=== PATIENT | male | born 1990 | race Caucasian/White ===

== ENCOUNTER 2016-11-18 13:28 | Emergency (ER) | payer MEDICAID, OTHER ==
--- NOTE | 2016-11-18 13:59 | ED ---
HPI Chest Pain - HPI Summary HPI Summary: 26 YR OLD male with the complaint of chest pain, palpitation, dizziness. The patient states he has been getting these symptoms the past week. He was up doing [employer] until about 4 or 5 am today. He states he has been to [facility] a couple times this past week. He states he doesn't know if his symptoms are all in his head or not. - History of Current Complaint Chief Complaint: UCChestPain Time Seen by Provider: 11/18/16 13:40 - Allergy/Home Medications Allergies/Adverse Reactions: Allergies Allergy/AdvReac Type Severity Reaction Status Date / Time No Known Allergies Allergy Verified 11/18/16 13:37 PMH/Surg Hx/FS Hx/Imm Hx Previously Healthy: Yes Respiratory History: Reports: Hx Asthma Infectious Disease History: No Infectious Disease History: Denies: Traveled Outside the in Last 30 Days - Social History Alcohol Use: Occasionally Alcohol Amount: few times a month Substance Use Type: Reports: Marijuana Substance Use Comment - Amount & Last Used: meth use 2 times weekly; also uses suboxone IV q2-3 days Smoking Status (MU): Heavy Every Day Tobacco Smoker Type: Cigarettes Amount Used/How Often: 1/2 - 3/4 ppd Length of Time of Smoking/Using Tobacco: 6 years Review of Systems Constitutional: Negative Positive: Palpitations, Chest Pain All Other Systems Reviewed And Are Negative: Yes Physical Exam Triage Information Reviewed: Yes Vital Signs On Initial Exam: Initial Vitals Temp Pulse Resp BP Pulse Ox 99.4 F 60 16 137/78 100 11/18/16 13:38 11/18/16 13:38 11/18/16 13:38 11/18/16 13:38 11/18/16 13:38 Vital Signs Reviewed: Yes Appearance: Positive: Well-Appearing, No Pain Distress, Well-Nourished Head/Face: Positive: Normal Head/Face Inspection Eyes: Positive: Normal, EOMI ENT: Positive: Pharynx normal Respiratory/Lung Sounds: Positive: Clear to Auscultation, Breath Sounds Present Cardiovascular: Positive: Normal, RRR Abdomen Description: Positive: Nontender Musculoskeletal: Positive: Normal, Strength/ROM Intact Neurological: Positive: Normal, Sensory/Motor Intact, Alert, Oriented to Person Place, Time, CN Intact II-III Psychiatric: Positive: Anxious Diagnostics - Vital Signs Vital Signs Temp Pulse Resp BP Pulse Ox 11/18/16 13:38 99.4 F 60 16 137/78 100 - Laboratory Lab Statement: Any lab studies that have been ordered have been reviewed, and results considered in the medical decision making process. - EKG 11/18/2016 Cardiac Rate: NL EKG Rhythm: Sinus Rhythm ST Segment: Normal Ectopy: None Chest Pain Course/Dx - Course Course Of Treatment: patient with CP. Discussed with Summer , DR Nogueira and the patient will be seen there for further eval, and going by ambulance. - Diagnoses Provider Diagnoses: Chest pain, Palpitations Discharge - Discharge Plan Condition: Good Disposition: TRANS HIGHER LVL OF CARE FAC
[2016-11-18 14:07] VITALS: BP 142/78
[2016-11-19] MEDS ORDERED: Aspirin Low Dose CHEW TAB* 81 MG PO ONE (13:58)
== END 2016-11-18 14:14 | disposition short-term general hospital (02) ==
LOC: UCCORT 13:28
DX: R07.89 Other chest pain (principal); R00.2 Palpitations; J45.909 Unspecified asthma, uncomplicated; F11.90 Opioid use, unspecified, uncomplicated; F17.210 Nicotine dependence, cigarettes, uncomplicated
CPT/HCPCS: 93005; 99213; A9270-GY; G0463

== ENCOUNTER 2017-04-25 17:56 | Emergency (ER) | payer OTHER ==
[2017-04-25 18:15] VITALS: BP 98/52
--- NOTE | 2017-04-25 18:23 | UC ---
Throat Pain/Nasal Turner HPI - HPI Summary HPI Summary: 27 YEAR OLD MALE PRESENTS WITH COMPLAINS OF FEVER, BODY ACHES, SORE THROAT AND HEADACHES. - History of Current Complaint Chief Complaint: UCGeneralIllness Stated Complaint: ACHES, ST Time Seen by Provider: 04/25/17 18:23 Hx Obtained From: Patient Onset/Duration: Sudden Onset Severity: Moderate - Allergies/Home Medications Allergies/Adverse Reactions: Allergies Allergy/AdvReac Type Severity Reaction Status Date / Time No Known Allergies Allergy Verified 04/25/17 18:15 PMH/Surg Hx/FS Hx/Imm Hx Previously Healthy: Yes - Surgical History Surgical History: None - Social History Alcohol Use: Occasionally Alcohol Amount: few times a month Substance Use Type: Marijuana Substance Use Comment - Amount & Last Used: meth use 2 times weekly; also uses suboxone IV q2-3 days Smoking Status (MU): Heavy Every Day Tobacco Smoker Type: Cigarettes Amount Used/How Often: 1/2 - 3/4 ppd Length of Time of Smoking/Using Tobacco: 6 years Household Exposure Type: Cigarettes Review of Systems Constitutional: Negative Skin: Negative Eyes: Negative ENT: Nasal Discharge, Sinus Congestion, Sinus Pain/Tenderness Respiratory: Cough Cardiovascular: Negative Gastrointestinal: Negative Genitourinary: Negative Motor: Negative Neurovascular: Negative Musculoskeletal: Negative Neurological: Negative Psychological: Negative All Other Systems Reviewed And Are Negative: Yes Physical Exam Triage Information Reviewed: Yes Vital Signs: Initial Vital Signs Temp 36.5 C 04/25/17 18:10 Pulse 98 04/25/17 18:10 Resp 18 04/25/17 18:10 BP 98/52 04/25/17 18:10 Pulse Ox 100 04/25/17 18:10 Vital Signs Reviewed: Yes Eye Exam: Normal ENT: Positive: Pharyngeal erythema, Nasal congestion, Nasal drainage, Sinus tenderness Dental Exam: Normal Neck exam: Normal Neck: Positive: 1 Respiratory Exam: Normal Cardiovascular Exam: Normal Abdominal Exam: Normal Musculoskeletal Exam: Normal Neurological Exam: Normal Psychological Exam: Normal Skin Exam: Normal Throat Pain/Nasal Course/Dx - Differential Dx/Diagnosis Provider Diagnoses: SINUSITIS. BODY ACHES Discharge - Discharge Plan Condition: Stable Disposition: HOME Prescriptions: Amoxicillin/Clavulanate TAB* [Augmentin TAB 875*] 875 mg PO BID #20 tab LoraTADine TAB(NF) [Claritin 10 MG TAB(NF)] 10 mg PO DAILY #30 tab Magic M W2 Isak/Maal/Nyst/Lido* 5 ml SWISH SPIT QID PRN #120 ml PRN Reason: Sore Throat Methylprednisolone [Medrol Dosepak 4 MG*] 4 mg PO .SEE MY INSTRUCTION #21 tab Patient Education Materials: Sinusitis (ED) Forms: *Gen. Provider Communication Referrals: Godwin Zambrano MD [Primary Care Provider] -
== END 2017-04-25 18:55 | disposition home or self-care (01) ==
LOC: UCCORT 17:56
DX: J32.9 Chronic sinusitis, unspecified (principal); M79.1 Myalgia; F12.90 Cannabis use, unspecified, uncomplicated; F17.210 Nicotine dependence, cigarettes, uncomplicated
CPT/HCPCS: 87502; 87651; 99212; G0463